=== PATIENT | female | born 1950 | race African-American/Black ===

== ENCOUNTER 2020-09-20 08:27 | Emergency (ER) | payer BC, OTHER ==
[~2020-09-20] VITALS: Ht 160 cm; Wt 99.8 kg
[2020-09-20 08:31] VITALS: BP 149/59
--- NOTE | 2020-09-20 08:41 | NUR ---
ED Nurse Note: Patient from home and walked in due to upper lip swelling. Patient had taken lisinopril this morning and then she noticed lip swelling afterwards. AAO x4, ambulatory with non labored breathing. Speaks in full sentences.
--- NOTE | 2020-09-20 08:50 | Emergency Room Report ---
History of Present Illness General Chief Complaint: Edema Source: Patient Present Illness HPI Patient presents with upper lip swelling. This began yesterday in the afternoon in her lower lip on the left-hand side. Towards evening she felt her upper lip was quite a bit swollen. This morning it has continued. She also feels some tingling just on either side of her nose. The patient takes lisinopril. She denies any swelling in her throat, difficulty swallowing or shortness of breath. She had a similar episode in the past several years ago after taking ibuprofen. In addition she says that she is allergic to aspirin and when she does take that she has throat closing. Patient denies exposure to Covid positive contacts. No fevers, chills, sore throat, chest pain, palpitations, nausea, vomiting, diarrhea, dysuria, abdominal pain, shortness of breath, joint pain, anxiety, visual changes, dizziness, headache. The patient has a history of asthma. She takes Spiriva Diskus and also albuterol. She denies any wheezing. Allergies: Coded Allergies: ASPIRIN (Verified Allergy, Unknown, 09/20/20) IBUPROFEN (Verified Allergy, Unknown, 09/20/20) COVID-19 Screening Contact w/high risk pt: No Experienced COVID-19 symptoms?: No COVID-19 Testing performed CONVEX GRINDER: No Patient History Past Medical History: see triage record Social History: Denies: smoking, alcohol use, drug use Social History Narrative The patient came to the emergency department instead of going to work today Reviewed Nursing Documentation: PMH: Agreed; PSxH: Agreed Nursing Documentation-PMH Hx Hypertension: Yes Hx Asthma: Yes Review of Systems All Other Systems: negative except mentioned in HPI Physical Exam Vital Signs Date Time Temp Pulse Resp B/P (MAP) Pulse Ox O2 Delivery O2 Flow Rate FiO2 09/20/20 08:31 98.4 82 16 149/59 (89) 97 Room Air Sp02 EP Interpretation: reviewed, normal General Appearance: well appearing, no apparent distress, GCS 15 Head: normocephalic Eyes: bilateral eye normal inspection ENT: normal pharynx, moist mucus membranes, other - Upper lip swelling is fairly tense Neck: supple, other - No stridor Respiratory: lungs clear, normal breath sounds Cardiovascular #1: regular rate, rhythm Cardiovascular #2: 2+ radial (R) Gastrointestinal: normal inspection, normal bowel sounds, non tender, no mass, non-distended, overweight Musculoskeletal: back normal, normal range of motion, no calf tenderness, gait/station normal Neurologic: alert, oriented x3, grossly normal Psychiatric: mood/affect normal Skin: warm/dry, other - Angioedema of upper lip Medical Decision Making Diagnostic Impression: 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 Differential includes allergic reaction, CLAIRE inhibitor angioedema next others. At this time there is no upper airway involvement aside from the upper lip. The swelling has been stable since yesterday according to the patient. She has had allergic reactions like this related to aspirin and ibuprofen however she states that she has not been in contact with those medications. The diagnosis is clinical. There is no airway compromise at this time and therefore normal apparent emergent condition. I warned the patient about this possibility but said this was not likely. Also I discussed that she could not take any more CLAIRE inhibitor blood pressure medications. I discussed giving her a different type of blood pressure medication. She was concerned about taking a dose at this time but feels comfortable about taking a dose tomorrow. Patient stable for outpatient observation and treatment. Last Vital Signs Date Time Temp Pulse Resp B/P (MAP) Pulse Ox O2 Delivery O2 Flow Rate FiO2 09/20/20 09:03 98.2 79 20 135/76 99 Room Air Status: unchanged Disposition: HOME, SELF-CARE Condition: Stable Scripts Amlodipine Besylate (Norvasc) 2.5 Mg Tablet 2.5 MG ORAL DAILY, #30 TAB Prov: Houston Palomo MD 09/20/20 Houston Palomo MD Sep 20, 2020 08:50
[2020-09-20] MEDS ORDERED: NORVASC2.5 MG ORAL (08:52)
[2020-09-20] MEDS ORDERED: ALBUTEROL SULF8.5 G1 INH (09:00)
[2020-09-20] MEDS ORDERED: LISINOPRIL-HCT1 EACH ORAL (09:00)
[2020-09-20] MEDS ORDERED: MONTELUKAST SOD10 MG ORAL (09:00)
[2020-09-20 09:03] VITALS: BP 135/76
--- NOTE | 2020-09-20 09:03 | NUR ---
ER DISCHARGE NOTE: Patient is cleared to be discharged per ERMD, pt is aox4, on room air, with stable vital signs. pt was given dc and prescription instructions, pt was able to verbalize understanding, pt id band removed. pt is able to ambulate with steady gait. pt took all belongings.
== END 2020-09-20 09:03 | disposition home or self-care (01) ==
LOC: EMR 08:52
DX: T78.3XXA Angioneurotic edema, initial encounter (principal); T46.4X5A Adverse effect of angiotensin-converting-enzyme inhibitors, initial encounter; I10 Essential (primary) hypertension; J45.909 Unspecified asthma, uncomplicated; Z88.6 Allergy status to analgesic agent; Z79.899 Other long term (current) drug therapy
CPT/HCPCS: 99282